=== PATIENT | female | born 1985 | race Caucasian/White ===

== ENCOUNTER 2017-10-24 02:33 | Emergency (ER) | payer SELFPAY ==
[~2017-10-24] VITALS: Ht 175.3 cm; Wt 82.6 kg
[~2017-10-24 02:33] MED LIST: BACTRIM DS1 TAB OR; BACTRIM DS1 TAB PO; CEPHALEXIN500 MG PO; CIPRO500 MG OR; CIPRO500 MG PO; CLINDAMYCIN2 % VA; FEOSOL45 MG PO; IBUPROFEN600 MG PO; LITHIUM CARB300 M1 PO; LITHIUM CARB300 MG OR; LITHIUM CARB600 MG OR; LORTAB 10 OR; LORTAB 10-325 M1 TAB PO; LORTAB 5 OR; MIRALAX3350 N1 PO; NICOTINE T21 MG/PATC TD; NO HOME MEDS; NORCO1 TA2 PO; OXAZEPAM10 MG OR; PRENATABS OR; PRENATAL1 TA1; PRILOSEC20 MG/CAP PO; PYRIDIUM200 MG PO; SENNOSIDES-DOCU1 TAB PO; SEROQUEL100 MG OR; SEROQUEL100 MG PO; SPRINTEC 2828 DAY OR; ULTRAM50 M1 PO; ULTRAM50 MG OR; ZOFRAN ODT4 MG OR; [UNRECOGNIZED DRUG - OTHER] PO
[2017-10-24 03:43] LABS: URINE BILIRUBIN - DIPSTICK NEGATIVE (NEGATIVE); URINE BLOOD DIPSTICK TRACE-INTACT (NEGATIVE); URINE COLOR YELLOW; URINE GLUCOSE - DIPSTICK NEGATIVE (NEGATIVE); URINE KETONE NEGATIVE (NEGATIVE); URINE NITRITE - DIPSTICK NEGATIVE (Negative); URINE PROTEIN - DIPSTICK NEGATIVE (NEG-TRACE); URINE SPECIFIC GRAVITY >=1.030; URINE UROBILINOGEN - DIPSTICK 0.2 E.U./dL (0.2)
[2017-10-24 03:48] LABS: URINE CLARITY TURBID; URINE LEUK ESTERASE MODERATE (NEGATIVE)
[2017-10-24 03:51] LABS: URINE BACTERIA FEW hpf; URINE MUCUS FEW hpf (NONE-FEW); URINE SQUAMOUS EPITHELIAL CELL MANY EPI/hpf (0-FEW); URINE WBC 20-50 WBC/hpf (0-5)
[2017-10-24 03:59] LABS: INFLUENZA A NONE DETECTED (NONE DETECT); INFLUENZA B NONE DETECTED (NONE DETECT)
[2017-10-24] MEDS ORDERED: CEPHALEXIN500 MG PO (04:12)
[2017-10-24] MEDS ORDERED: ROBITUSSIN AC10 ML PO (04:12)
[2017-10-24] MEDS ORDERED: BACTRIM DS1 TAB PO (04:13)
[2017-10-24 04:19] VITALS: BP 116/72
== END 2017-10-24 04:27 | disposition home or self-care (01) | DRG 153 ==
LOC: ED 02:33
PROVIDERS: Emergency Medicine
DX: J02.9 Acute pharyngitis, unspecified (principal); M79.1 Myalgia; N39.0 Urinary tract infection, site not specified; R05 Cough; R50.9 Fever, unspecified

== ENCOUNTER 2018-09-09 07:21 | Emergency (ER) | payer OTHER ==
[~2018-09-09] VITALS: Ht 175.3 cm; Wt 82.0 kg
[~2018-09-09 07:21] MED LIST changes: +ROBITUSSIN AC10 ML PO
[2018-09-09 08:34] LABS: INFLUENZA A NONE DETECTED (NONE DETECT); INFLUENZA B NONE DETECTED (NONE DETECT)
[2018-09-09] MEDS ORDERED: ZITHROMAX250 MG PO (08:49)
[2018-09-09 09:02] VITALS: BP 111/66
== END 2018-09-09 09:20 | disposition home or self-care (01) ==
LOC: ED 07:21
PROVIDERS: Emergency Medicine
DX: J02.9 Acute pharyngitis, unspecified (principal); B34.9 Viral infection, unspecified; F17.210 Nicotine dependence, cigarettes, uncomplicated

== ENCOUNTER 2018-11-18 12:15 | Emergency (ER) | payer OTHER ==
[~2018-11-18] VITALS: Ht 175.3 cm; Wt 77.3 kg
[~2018-11-18 12:15] MED LIST changes: +ZITHROMAX250 MG PO
[2018-11-18] MEDS ORDERED: MOTRIN400 MG PO (14:01)
[2018-11-18] MEDS ORDERED: VOLTAREN1%GEL TOP (14:01)
[2018-11-18] MEDS ORDERED: CYCLOBENZAPR5 MG PO (14:01)
[2018-11-18 14:13] VITALS: BP 120/79
== END 2018-11-18 14:28 | disposition home or self-care (01) ==
LOC: ED 12:15
DX: M54.2 Cervicalgia (principal); R06.02 Shortness of breath; R20.0 Anesthesia of skin; R20.2 Paresthesia of skin; F17.210 Nicotine dependence, cigarettes, uncomplicated

== ENCOUNTER 2019-08-30 23:54 | Emergency (ER) | payer SELFPAY ==
[~2019-08-30] VITALS: Ht 175.3 cm; Wt 69.6 kg
[~2019-08-30 23:54] MED LIST changes: +CYCLOBENZAPR5 MG PO; +MOTRIN400 MG PO; +VOLTAREN1%GEL TOP
[2019-08-31] MEDS ORDERED: TRAMADOL HYDROC50 MG PO (01:37)
[2019-08-31] MEDS ORDERED: IBUPROFEN600 MG PO (01:37)
[2019-08-31 02:00] VITALS: BP 139/73
== END 2019-08-31 01:55 | disposition home or self-care (01) | DRG 563 ==
LOC: ED 23:54
DX: S46.911A Strain of unspecified muscle, fascia and tendon at shoulder and upper arm level, right arm, initial encounter (principal); F17.200 Nicotine dependence, unspecified, uncomplicated; X58.XXXA Exposure to other specified factors, initial encounter

== ENCOUNTER 2019-11-26 13:09 | Emergency (ER) | payer SELFPAY ==
[~2019-11-26 13:09] MED LIST changes: +TRAMADOL HYDROC50 MG PO
[2019-11-26] MEDS ORDERED: CEPHALEXIN500 M1 PO ×2 (13:33→13:35)
[2019-11-26] MEDS ORDERED: BACTRIM DS1 TAB PO ×2 (13:33→13:35)
[2019-11-26 13:50] VITALS: BP 137/94
== END 2019-11-26 13:50 | disposition home or self-care (01) | DRG 603 ==
LOC: ED 13:09
DX: L03.116 Cellulitis of left lower limb (principal)

== ENCOUNTER 2022-04-13 22:38 | Emergency (ER) | payer SELFPAY ==
[~2022-04-13] VITALS: Ht 175.3 cm; Wt 75.0 kg
[~2022-04-13 22:38] MED LIST changes: +CEPHALEXIN500 M1 PO
[2022-04-13 22:44] VITALS: BP 127/90
[2022-04-13 23:23] VITALS: BP 106/74
[2022-04-13 23:30] VITALS: BP 123/78
[2022-04-13 23:32] LABS: HEMATOCRIT 38.2 % (37.0-47.0); HEMOGLOBIN 12.9 g/dl (12.0-16.0); IMMATURE GRANULOCYTES 0.1 % (0.0-5.0); MEAN CELL VOLUME 92.3 fL CALC (80.0-100.0); MEAN CORPUSCULAR HGB 31.2 pG CALC (26.0-32.0); MEAN CORPUSCULAR HGB CONC 33.8 g/dL CAL (32.0-36.0); NEUT# 5.26 thou/uL (2.00-7.15); RED BLOOD COUNT 4.14 mill/uL (4.20-5.60); RED CELL DISTRI WIDTH 12.8 % (11.5-15.5)
[2022-04-13 23:59] LABS: ALKALINE PHOSPHATASE 74 u/l (38-126); ANION GAP 12 (6-22 (CALC)); BILIRUBIN, TOTAL 0.5 mg/dL (0.0-1.4); BUN 18 mg/dL (7-17); BUN/CREATININE RATIO 21 (12-20 (CALC)); CARBON DIOXIDE 22 mmol/l (22-30); CHLORIDE 108 mmol/l (95-108); CREATININE 0.9 mg/dL (0.5-1.0); GFR FOR AFR.AMER. > 60 ML/MIN (>=60 (CALC)); GFR OTHER RACES > 60 ML/MIN (>=60 (CALC)); POTASSIUM 3.7 mmol/l (3.5-5.1); SGOT/AST 27 u/l (14-36); SODIUM 139 mmol/l (137-146)
[2022-04-14] VITALS: BP 113/78
[2022-04-14 00:30] VITALS: BP 98/69
[2022-04-14] MEDS ORDERED: KEFLEX500 MG PO (00:37)
[2022-04-14] MEDS ORDERED: BACTRIM DS1 TAB PO (00:37)
[2022-04-14 00:50] VITALS: BP 98/69
== END 2022-04-14 00:57 | disposition home or self-care (01) | DRG 603 ==
LOC: ED 22:38
PROVIDERS: Emergency Medicine
DX: L03.115 Cellulitis of right lower limb (principal)

== ENCOUNTER 2022-07-06 15:41 | Emergency (ER) | payer SELFPAY ==
[~2022-07-06] VITALS: Ht 175.3 cm; Wt 78.0 kg
[2022-07-06] VITALS (7 sets, daily range): BP systolic 110–128; BP diastolic 74–89
[~2022-07-06 15:41] MED LIST changes: +KEFLEX500 MG PO
[2022-07-06 16:55] LABS: HEMATOCRIT 38.7 % (37.0-47.0); HEMOGLOBIN 13.7 g/dl (12.0-16.0); IMMATURE GRANULOCYTES 0.1 % (0.0-5.0); MEAN CELL VOLUME 88.2 fL CALC (80.0-100.0); MEAN CORPUSCULAR HGB 31.2 pG CALC (26.0-32.0); MEAN CORPUSCULAR HGB CONC 35.4 g/dL CAL (32.0-36.0); NEUT# 4.38 thou/uL (2.00-7.15); RED BLOOD COUNT 4.39 mill/uL (4.20-5.60); RED CELL DISTRI WIDTH 12.8 % (11.5-15.5)
[2022-07-06 17:14] LABS: ALBUMIN 3.9 g/dL (3.2-5.0); ALKALINE PHOSPHATASE 76 u/l (38-126); ANION GAP 13 (6-22 (CALC)); BILIRUBIN, TOTAL 0.5 mg/dL (0.0-1.4); BUN 9 mg/dL (7-17); BUN/CREATININE RATIO 14 (12-20 (CALC)); CARBON DIOXIDE 21 mmol/l (22-30); CHLORIDE 108 mmol/l (95-108); CREATININE 0.7 mg/dL (0.5-1.0); GFR FOR AFR.AMER. > 60 ML/MIN (>=60 (CALC)); GFR OTHER RACES > 60 ML/MIN (>=60 (CALC)); POTASSIUM 4.4 mmol/l (3.5-5.1); SGOT/AST 44 u/l (14-36); SODIUM 138 mmol/l (137-146); TOTAL PROTEIN 7.1 g/dL (6.3-8.2)
[2022-07-06 17:56] LABS: URINE BILIRUBIN - DIPSTICK NEGATIVE (NEGATIVE); URINE BLOOD DIPSTICK NEGATIVE (NEGATIVE); URINE COLOR YELLOW; URINE GLUCOSE - DIPSTICK NEGATIVE (NEGATIVE); URINE KETONE NEGATIVE (NEGATIVE); URINE LEUK ESTERASE TRACE (NEGATIVE); URINE PROTEIN - DIPSTICK NEGATIVE (NEG-TRACE); URINE UROBILINOGEN - DIPSTICK 0.2 E.U./dL (0.2)
[2022-07-06 17:57] LABS: URINE NITRITE - DIPSTICK NEGATIVE (Negative)
[2022-07-06] MEDS ORDERED: CITRATE OF MEGNESIA PO (18:07)
[2022-07-06] MEDS ORDERED: MIRALAX17 GM PO (18:07)
== END 2022-07-06 18:42 | disposition home or self-care (01) | DRG 392 ==
LOC: ED 15:41
PROVIDERS: Family Medicine
DX: K59.00 Constipation, unspecified (principal); N20.0 Calculus of kidney; B18.2 Chronic viral hepatitis C; F17.200 Nicotine dependence, unspecified, uncomplicated

== ENCOUNTER 2023-06-25 19:54 | Emergency (ER) | payer OTHER, BC ==
[~2023-06-25] VITALS: Ht 175.3 cm; Wt 70.0 kg
[~2023-06-25 19:54] MED LIST changes: +CITRATE OF MEGNESIA PO; +MIRALAX17 GM PO
[2023-06-25 20:00] VITALS: BP 127/93
[2023-06-25 20:15] VITALS: BP 133/98
[2023-06-25 20:30] VITALS: BP 125/92
[2023-06-25 20:45] VITALS: BP 128/89
[2023-06-25] MEDS ORDERED: METHOCARBAMOL500 MG PO (21:58)
[2023-06-25] MEDS ORDERED: EC-NAPROXEN500 MG PO (21:58)
[2023-06-25 22:44] VITALS: BP 128/89
== END 2023-06-25 22:44 | disposition home or self-care (01) | DRG 556 ==
LOC: ED 19:54
DX: M79.642 Pain in left hand (principal); M79.605 Pain in left leg; M62.838 Other muscle spasm; T14.8XXA Other injury of unspecified body region, initial encounter; F17.200 Nicotine dependence, unspecified, uncomplicated; V13.0XXA Pedal cycle driver injured in collision with car, pick-up truck or van in nontraffic accident, initial encounter; Y93.55 Activity, bike riding; Y92.481 Parking lot as the place of occurrence of the external cause